=== PATIENT | female | born 1955 | race Two or more races ===

== ENCOUNTER 2017-11-15 08:56 | Day surgery (SDC) | payer OTHER ==
[~2017-11-15 08:56] MED LIST: DEMEROL; OMEPRAZOLE20 MG PO; PERCOCET 10-3251 TAB; TRICOR145 MG PO; [UNRECOGNIZED DRUG - OTHER]
== END 2017-11-15 20:09 | disposition home or self-care (01) ==
LOC: AMB-ENDOS 08:56
DX: D12.8 Benign neoplasm of rectum (principal); K64.1 Second degree hemorrhoids; R33.8 Other retention of urine

== ENCOUNTER 2018-12-12 08:41 | Day surgery (SDC) | payer OTHER | END 2018-12-12 13:50 | disposition home or self-care (01) | LOC: AMB-ENDOS 08:41 | DX: D12.9 Benign neoplasm of anus and anal canal (principal) ==

== ENCOUNTER 2020-02-05 07:36 | Day surgery (SDC) | payer OTHER | END 2020-02-05 13:50 | disposition home or self-care (01) | LOC: AMB-ENDOS 07:36 | PROVIDERS: ATTEND Colon & Rectal Surgery | DX: D12.8 Benign neoplasm of rectum (principal); K64.1 Second degree hemorrhoids; Z20.828 Contact with and (suspected) exposure to other viral communicable diseases ==